=== PATIENT | female | born 1965 | race Caucasian/White ===

== ENCOUNTER 2024-04-12 09:40 | Inpatient (IN) | payer MEDICARE, OTHER ==
[~2024-04-12] VITALS: Ht 165.1 cm; Wt 85.8 kg
[2024-04-12 11:05] LABS: Eosinophils # (auto) 0.2 10 ^3/uL (0-0.8); Eosinophils % (auto) 1.5 % (0.0-7.0); Hemoglobin 11.7 g/dL (12.2-16.2); Mean Corpuscular Volume 101.1 fL (80.0-100.0)
[2024-04-12 11:07] LABS: Basophils # (auto) 0 10 ^3/uL (0-0.2); Lymphocytes # (auto) 1.1 10 ^3/uL (0.4-5.4); Lymphocytes % (auto) 7.4 % (10.0-50.0); Mean Corpuscular Hemoglobin 34.8 pg (28.0-32.0); Mean Corpuscular Hgb Conc. 34.4 g/dL (32.0-36.0); Monocytes # (auto) 0.7 10 ^3/uL (0-1.3); Monocytes % (auto) 4.5 % (0.0-12.0); Neutrophils # (auto) 13.4 10 ^3/uL (1.6-8.6); Neutrophils % (auto) 86.6 % (37.0-80.0); Red Blood Cells 3.37 10^6/uL (4.0-5.20); Red Cell Distribution Width 15.4 % (11.8-14.3); White Blood Cell 15.4 10^3/uL (4.4-10.8)
[2024-04-12 11:11] LABS: Urine Bacteria FEW /hpf (None Seen); Urine Blood Negative /uL (Negative); Urine Clarity Turbid (Clear); Urine Color Yellow (Yellow); Urine Hyaline Cast MOD /lpf (0 - 2); Urine Protein, UAD Negative (Negative); Urine Urobilinogen Normal (Negative); Urine WBC 8 /hpf (0 - 5)
[2024-04-12 11:22] LABS: Alanine Aminotransferase 45 U/L (7-40); Albumin 2.9 g/dL (3.2-4.8); Alkaline Phosphatase 167 U/L (46-116); Anion Gap 8 (5-15); Aspartate Aminotransferase 114 U/L (13-40); BUN/Creatinine Ratio 15.5 (10.0-20.0); Bilirubin, Total 2.9 mg/dL (0.2-1.0); Blood Urea Nitrogen 18 mg/dL (9-23); Calcium 8.6 mg/dL (8.5-10.1); Carbon Dioxide 28 mmol/L (20-30); Chloride 96 mmol/L (98-107); Glucose 110 mg/dL (74-106); Sodium 132 mmol/L (136-145)
[2024-04-12 11:45] VITALS: PULSE 86; RESP 18; O2SAT 97
[2024-04-12 12:16] LABS: Erythrocyte Sedimentation Rate 35 mm/hr (0-20)
[2024-04-12 12:20] LABS: Magnesium 1.4 mg/dL (1.6-2.6)
[2024-04-12 12:29] LABS: CRP High Sensitivity 5.28 mg/dL (<1.0)
[2024-04-12] MEDS: ASPirin 325 MG TAB PO ONE (12:40)
[2024-04-12] MEDS: POTASSIUM CHL 20 Meq TABLET PO ONE (14:33)
[2024-04-12] MEDS: ALBUMIN 25% 100 ML IV ONE (14:34)
[2024-04-12] MEDS: MAGNESIUM SULFATE 1GM/100ML 100 ML IV ONE (14:35)
[2024-04-12] MEDS ORDERED: ONDANSETRON HCL 4 MG/2 ML VIAL IV PRN (14:45)
[2024-04-12] MEDS ORDERED: MORPHINE SULFATE INJ 2 MG/ml SYRG IV PRN (14:45)
[2024-04-12] MEDS ORDERED: NITROGLYCERIN 0.4 MG SL TAB SL PRN (14:45)
[2024-04-12] MEDS ORDERED: DOCUSATE SOD 100 MG CAP PO PRN (14:45)
[2024-04-12 15:18] LABS: Blood Alcohol < 3.0 mg/dL (<10)
[2024-04-12 15:19] LABS: Magnesium 1.4 mg/dL (1.6-2.6)
[2024-04-12 15:20] LABS: Phosphorus 3.7 mg/dL (2.4-5.1)
[2024-04-12 15:55] LABS: Potassium 1.8 mmol/L (3.5-5.1)
[2024-04-12] MEDS ORDERED: POTASSIUM CHL 20MEQ/100ML 100 ML IV ONE (16:15)
[2024-04-12] MEDS: POTASSIUM CHL 20MEQ/100ML 100 ML IV SCH (16:45)
[2024-04-12 16:57] LABS: Amphetamine Screen, Urine Neg (NEGATIVE)
[2024-04-12 16:58] LABS: Barbiturate Scree,Urine Neg (NEGATIVE); Benzodiazephine Screen, Urine Neg (NEGATIVE); Cannabinoid Screen, Urine Neg (NEGATIVE); Cocaine Screen, Urine Neg (NEGATIVE); Opiate Scree,Urine Neg (NEGATIVE); Phencyclidine Screen, Urine Neg (NEGATIVE)
[2024-04-12] MEDS: PANTOPRAZOLE 40 MG/10 ML VIAL INJ IV ONE (17:00)
[2024-04-12] MEDS: PIPERACILLIN-TAZOB 3.375GM 100 ML IV ONE (17:03)
[2024-04-12] MEDS: MORPHINE SULFATE INJ 2 MG/ml SYRG IV PRN (17:14)
[2024-04-12 18:11] VITALS: PULSE 89; RESP 18; O2SAT 94
[2024-04-12] MEDS ORDERED: LAM100T PO (18:30)
[2024-04-12] MEDS ORDERED: QUET200T30 PO (18:30)
[2024-04-12 20:00] VITALS: PULSE 99
[2024-04-12 20:47] LABS: INR 1.48 (0.9-1.15); Prothrombin Time 15.2 sec (9.3-11.8)
[2024-04-12 21:00] VITALS: BP 91/59; PULSE 95; RESP 18; TEMP 98.4; O2SAT 97
[2024-04-12] MEDS: MAGNESIUM SULFATE 1GM/100ML 100 ML IV SCH (21:00)
[2024-04-12] MEDS: POTASSIUM CHLORIDE 40 MEQ, LIDOCAINE 1% (LOCAL ANESTH.) 4 ML in SODIUM CHL 0.9% 250 ML IV ONE (21:53)
[2024-04-12] MEDS ORDERED: PIPERACILLIN-TAZOB 3.375GM 100 ML IV SCH (22:00)
[2024-04-12] MEDS: POTASSIUM EFFERVESENT TAB 25 MEQ PO ONE (22:02)
[2024-04-13] VITALS (9 sets, daily range): BP systolic 96–119; BP diastolic 53–72; PULSE 73–98; RESP 16–20; TEMP 98–99.3; O2SAT 90–96
[2024-04-13] MEDS: SPIRONOLACTONE 25 MG TAB PO ONE (01:19)
[2024-04-13] MEDS: MAGNESIUM SULFATE 1GM/100ML 100 ML IV SCH (01:37)
[2024-04-13] MEDS: PIPERACILLIN-TAZOB 3.375GM 100 ML IV SCH (04:35)
[2024-04-13 05:55] LABS: Basophils # (auto) 0.1 10 ^3/uL (0-0.2); Eosinophils # (auto) 0.5 10 ^3/uL (0-0.8); Monocytes # (auto) 0.9 10 ^3/uL (0-1.3); Red Blood Cells 3.28 10^6/uL (4.0-5.20)
[2024-04-13 05:59] LABS: Basophils % (auto) 0.8 % (0.0-2.0); Eosinophils % (auto) 3.7 % (0.0-7.0); Hematocrit 33.6 % (36.0-46.0); Hemoglobin 11.4 g/dL (12.2-16.2); Lymphocytes # (auto) 1.9 10 ^3/uL (0.4-5.4); Lymphocytes % (auto) 12.6 % (10.0-50.0); Mean Corpuscular Hemoglobin 34.7 pg (28.0-32.0); Mean Corpuscular Hgb Conc. 33.9 g/dL (32.0-36.0); Mean Corpuscular Volume 102.4 fL (80.0-100.0); Neutrophils # (auto) 11.4 10 ^3/uL (1.6-8.6); Neutrophils % (auto) 76.9 % (37.0-80.0); Nucleated Red Blood Cells % 0.2 %; Red Cell Distribution Width 15.3 % (11.8-14.3); White Blood Cell 14.8 10^3/uL (4.4-10.8)
[2024-04-13 06:14] LABS: Alanine Aminotransferase 35 U/L (7-40); Albumin 2.6 g/dL (3.2-4.8); Alkaline Phosphatase 127 U/L (46-116); Anion Gap 6 (5-15); Aspartate Aminotransferase 79 U/L (13-40); Blood Urea Nitrogen 17 mg/dL (9-23); Calcium 8.3 mg/dL (8.5-10.1); Carbon Dioxide 30 mmol/L (20-30); Chloride 100 mmol/L (98-107); Glucose 111 mg/dL (74-106); Magnesium 2.4 mg/dL (1.6-2.6); Potassium 2.7 mmol/L (3.5-5.1); Sodium 136 mmol/L (136-145)
[2024-04-13 06:15] LABS: Bilirubin, Total 2.4 mg/dL (0.2-1.0)
[2024-04-13] MEDS: POTASSIUM CHL 20 Meq TABLET PO ONE ×2 (08:43→18:54)
[2024-04-13] MEDS: SPIRONOLACTONE 25 MG TAB PO SCH (08:45)
[2024-04-13] MEDS: PANTOPRAZOLE 40 MG/10 ML VIAL INJ IV SCH (08:46)
[2024-04-13 08:59] LABS: Hepatitis B Surface Antigen Negative (Negative)
[2024-04-13 09:19] LABS: Hepatitis A Ab IgM Negative
[2024-04-13 09:20] LABS: Hepatitis B Core IgM Negative
[2024-04-13 09:21] LABS: Hepatitis C Antibody Negative (Negative)
[2024-04-13] MEDS ORDERED: ENOXAPARIN SOD 40 MG/0.4 ML SYRINGE SC SCH (10:00)
[2024-04-13] MEDS ORDERED: LAMO200T34 PO (11:07)
[2024-04-13] MEDS: THIAMINE 100mg/ml INJ (200mg/2ml VIAL) IV ONE (15:53)
[2024-04-13] MEDS: FOLIC ACID 1 MG TAB PO ONE (15:53)
[2024-04-13] MEDS: FUROSEMIDE 40 MG/4 ML VIAL IV ONE (15:55)
[2024-04-13 16:46] LABS: Potassium 2.9 mmol/L (3.5-5.1)
[2024-04-13 16:53] LABS: Magnesium 2.3 mg/dL (1.6-2.6)
[2024-04-13] MEDS: NICOTINE 21MG/24 HR TOPICAL PATCH TD ONE (18:54)
[2024-04-13] MEDS: POTASSIUM CHLORIDE 40 MEQ, LIDOCAINE 1% (LOCAL ANESTH.) 4 ML in SODIUM CHL 0.9% 250 ML IV ONE (18:55)
[2024-04-13] MEDS: LACTULOSE 20Gm/30ML SOLN PO SCH (21:23)
[2024-04-13] MEDS: QUEtiapine FUMARATE 100 MG TAB PO SCH (22:47)
[2024-04-14] VITALS (7 sets, daily range): BP systolic 105–120; BP diastolic 60–81; PULSE 59–116; RESP 15–20; TEMP 98.2–99.3; O2SAT 94–98
[2024-04-14] MEDS: POTASSIUM CHLORIDE 40 MEQ, LIDOCAINE 1% (LOCAL ANESTH.) 4 ML in SODIUM CHL 0.9% 250 ML IV ONE (06:00)
[2024-04-14] MEDS: LORazepam 0.5 MG TAB PO PRN (06:00)
[2024-04-14 06:59] LABS: Alanine Aminotransferase 35 U/L (7-40); Albumin 2.7 g/dL (3.2-4.8); Alkaline Phosphatase 138 U/L (46-116); Anion Gap 8 (5-15); Aspartate Aminotransferase 109 U/L (13-40); BUN/Creatinine Ratio 14.9 (10.0-20.0); Blood Urea Nitrogen 11 mg/dL (9-23); Calcium 8.3 mg/dL (8.5-10.1); Carbon Dioxide 27 mmol/L (20-30); Chloride 99 mmol/L (98-107); Glucose 141 mg/dL (74-106); Magnesium 1.8 mg/dL (1.6-2.6); Potassium 3.7 mmol/L (3.5-5.1); Sodium 134 mmol/L (136-145)
[2024-04-14 07:00] LABS: Bilirubin, Total 2.7 mg/dL (0.2-1.0); Total Protein 5.5 g/dL (5.7-8.2)
[2024-04-14 08:38] LABS: Basophils # (auto) 0.2 10 ^3/uL (0-0.2); Eosinophils # (auto) 0.3 10 ^3/uL (0-0.8); Hemoglobin 11.3 g/dL (12.2-16.2); Red Cell Distribution Width 15.2 % (11.8-14.3)
[2024-04-14 08:43] LABS: Basophils % (auto) 1.2 % (0.0-2.0); Eosinophils % (auto) 2.5 % (0.0-7.0); Lymphocytes # (auto) 1.7 10 ^3/uL (0.4-5.4); Lymphocytes % (auto) 12.7 % (10.0-50.0); Mean Corpuscular Hemoglobin 34.4 pg (28.0-32.0); Mean Corpuscular Hgb Conc. 33.4 g/dL (32.0-36.0); Mean Corpuscular Volume 103.1 fL (80.0-100.0); Monocytes # (auto) 0.6 10 ^3/uL (0-1.3); Monocytes % (auto) 4.8 % (0.0-12.0); Neutrophils # (auto) 10.4 10 ^3/uL (1.6-8.6); Neutrophils % (auto) 78.8 % (37.0-80.0); White Blood Cell 13.2 10^3/uL (4.4-10.8)
[2024-04-14] MEDS: FUROSEMIDE 40 MG/4 ML VIAL IV SCH (09:22)
[2024-04-14] MEDS: cefTRIAXone 1GM/50ML D5W 50 ML IV SCH (09:22)
[2024-04-14] MEDS: LACTULOSE 20Gm/30ML SOLN PO SCH (09:22)
[2024-04-14] MEDS: FOLIC ACID 1 MG TAB PO SCH (09:22)
[2024-04-14] MEDS: THIAMINE 100mg/ml INJ (200mg/2ml VIAL) IV SCH (09:22)
[2024-04-14] MEDS: CYANOCOBALAMIN 500 MCG TAB PO ONE (09:26)
[2024-04-14] MEDS ORDERED: lamoTRIgine 100 MG TAB PO SCH (10:00)
[2024-04-14] MEDS: NICOTINE 21MG/24 HR TOPICAL PATCH TD SCH (17:39)
[2024-04-14] MEDS: lamoTRIgine 100 MG TAB PO SCH (21:33)
[2024-04-15] VITALS (8 sets, daily range): BP systolic 104–114; BP diastolic 55–69; PULSE 62–115; RESP 15–22; TEMP 98–99.2; O2SAT 94–97
[2024-04-15] MEDS: CYANOCOBALAMIN 500 MCG TAB PO SCH (09:50)
[2024-04-15 10:33] LABS: Basophils # (auto) 0.1 10 ^3/uL (0-0.2); Eosinophils # (auto) 0.6 10 ^3/uL (0-0.8); Neutrophils # (auto) 9.1 10 ^3/uL (1.6-8.6)
[2024-04-15 10:35] LABS: Basophils % (auto) 0.9 % (0.0-2.0); Eosinophils % (auto) 5.2 % (0.0-7.0); Hematocrit 35.3 % (36.0-46.0); Lymphocytes % (auto) 15.8 % (10.0-50.0); Mean Corpuscular Hemoglobin 35.6 pg (28.0-32.0); Mean Corpuscular Hgb Conc. 34.1 g/dL (32.0-36.0); Mean Corpuscular Volume 104.3 fL (80.0-100.0); Monocytes # (auto) 0.7 10 ^3/uL (0-1.3); Neutrophils % (auto) 72.1 % (37.0-80.0); Nucleated Red Blood Cells % 0.2 %; Red Blood Cells 3.38 10^6/uL (4.0-5.20); Red Cell Distribution Width 15.3 % (11.8-14.3); White Blood Cell 12.5 10^3/uL (4.4-10.8)
[2024-04-15 10:50] LABS: INR 1.35 (0.9-1.15)
[2024-04-15 10:51] LABS: Alkaline Phosphatase 127 U/L (46-116)
[2024-04-15 10:52] LABS: Alanine Aminotransferase 38 U/L (7-40); Anion Gap 7 (5-15); Aspartate Aminotransferase 123 U/L (13-40); BUN/Creatinine Ratio 13.6 (10.0-20.0); Bilirubin, Total 2.7 mg/dL (0.2-1.0); Blood Urea Nitrogen 9 mg/dL (9-23); Calcium 8.6 mg/dL (8.7-10.4); Carbon Dioxide 28 mmol/L (20-30); Chloride 101 mmol/L (98-107); Glucose 133 mg/dL (74-106); Potassium 3.2 mmol/L (3.5-5.1); Sodium 136 mmol/L (136-145)
[2024-04-15 11:18] LABS: Erythrocyte Sedimentation Rate 28 mm/hr (0-20)
[2024-04-16] VITALS (8 sets, daily range): BP systolic 104–137; BP diastolic 61–83; PULSE 78–108; RESP 16–21; TEMP 98.6–99.2; O2SAT 92–96
[2024-04-16] MEDS: guaiFENesin-DM 100/10mg/5ml SYR PO PRN (03:54)
[2024-04-16] MEDS: traMADol HCL 50 MG TAB PO PRN (06:38)
[2024-04-16] MEDS: POTASSIUM CHL 20 Meq TABLET PO ONE ×2 (09:30→23:27)
[2024-04-16 11:05] LABS: Anion Gap 5 (5-15); Carbon Dioxide 28 mmol/L (20-30); Chloride 100 mmol/L (98-107); Potassium 3.3 mmol/L (3.5-5.1); Sodium 133 mmol/L (136-145)
[2024-04-16 11:07] LABS: Calcium 8.9 mg/dL (8.7-10.4)
[2024-04-16 11:11] LABS: BUN/Creatinine Ratio 14.1 (10.0-20.0); Blood Urea Nitrogen 9 mg/dL (9-23); Glucose 132 mg/dL (74-106)
[2024-04-17] VITALS (8 sets, daily range): BP systolic 98–137; BP diastolic 53–92; PULSE 106–137; RESP 14–84; TEMP 98.3–99.3; O2SAT 93–98
[2024-04-17 06:05] LABS: Anion Gap 4 (5-15); Calcium 8.8 mg/dL (8.7-10.4); Carbon Dioxide 28 mmol/L (20-30); Chloride 104 mmol/L (98-107); Potassium 4.1 mmol/L (3.5-5.1); Sodium 136 mmol/L (136-145)
[2024-04-17 06:11] LABS: BUN/Creatinine Ratio 15.6 (10.0-20.0); Blood Urea Nitrogen 10 mg/dL (9-23); Glucose 96 mg/dL (74-106)
[2024-04-18 01:00] VITALS: BP 95/55; PULSE 95; RESP 55; TEMP 99.1; O2SAT 98
[2024-04-18 05:00] VITALS: BP 89/44; PULSE 117; RESP 16; TEMP 98.8; O2SAT 95
[2024-04-18] MEDS: PANTOPRAZOLE 40 MG TAB PO SCH (05:46)
[2024-04-18 08:15] VITALS: O2SAT 95
[2024-04-18 09:00] VITALS: BP 107/61; PULSE 112; RESP 20; TEMP 97.9; O2SAT 95
[2024-04-18] MEDS: THIAMINE HCL 100 MG TAB PO SCH (10:00)
[2024-04-18] MEDS ORDERED: levoFLOXacin 250 MG TAB PO SCH (10:00)
[2024-04-18 10:31] LABS: Basophils # (auto) 0.1 10 ^3/uL (0-0.2); Lymphocytes # (auto) 0.9 10 ^3/uL (0.4-5.4); White Blood Cell 6.9 10^3/uL (4.4-10.8)
[2024-04-18 10:34] LABS: Basophils % (auto) 1.2 % (0.0-2.0); Eosinophils # (auto) 0.5 10 ^3/uL (0-0.8); Eosinophils % (auto) 6.8 % (0.0-7.0); Hematocrit 32.1 % (36.0-46.0); Lymphocytes % (auto) 13.2 % (10.0-50.0); Mean Corpuscular Hemoglobin 35.3 pg (28.0-32.0); Mean Corpuscular Hgb Conc. 34.5 g/dL (32.0-36.0); Mean Corpuscular Volume 102.5 fL (80.0-100.0); Monocytes # (auto) 0.7 10 ^3/uL (0-1.3); Monocytes % (auto) 10.3 % (0.0-12.0); Neutrophils # (auto) 4.7 10 ^3/uL (1.6-8.6); Neutrophils % (auto) 68.5 % (37.0-80.0); Red Blood Cells 3.13 10^6/uL (4.0-5.20); Red Cell Distribution Width 14.7 % (11.8-14.3)
[2024-04-18 10:40] LABS: Chloride 105 mmol/L (98-107); Potassium 3.6 mmol/L (3.5-5.1); Sodium 135 mmol/L (136-145)
[2024-04-18 10:41] LABS: Anion Gap 4 (5-15); Calcium 8.9 mg/dL (8.7-10.4); Carbon Dioxide 26 mmol/L (20-30)
[2024-04-18 10:46] LABS: Blood Urea Nitrogen 9 mg/dL (9-23); Glucose 132 mg/dL (74-106)
[2024-04-18 13:00] VITALS: BP_SYST 54; PULSE 111; RESP 18; TEMP 97.8; O2SAT 91
[2024-04-18] MEDS ORDERED: PANT40TA2 PO (14:50)
[2024-04-18] MEDS ORDERED: MULTTAB99 PO (14:50)
[2024-04-18] MEDS ORDERED: LACT10SO3 PO (14:50)
[2024-04-18] MEDS ORDERED: SPIR50TA2 PO (14:50)
[2024-04-18] MEDS ORDERED: FURO1TAB31 PO (14:50)
== END 2024-04-18 17:20 | disposition home or self-care (01) | DRG 432 ==
LOC: ER 09:40 → TELE 14:52 → TELE-WESTW 17:49
PROVIDERS: ADMIT Internal Medicine; ATTEND Internal Medicine
DX: K70.31 Alcoholic cirrhosis of liver with ascites (principal); I21.A1 Myocardial infarction type 2; N17.0 Acute kidney failure with tubular necrosis; E87.1 Hypo-osmolality and hyponatremia; E44.1 Mild protein-calorie malnutrition; K80.51 Calculus of bile duct without cholangitis or cholecystitis with obstruction; K76.82 Hepatic encephalopathy; D72.829 Elevated white blood cell count, unspecified; E87.6 Hypokalemia; E83.42 Hypomagnesemia; R74.01 Elevation of levels of liver transaminase levels; F10.20 Alcohol dependence, uncomplicated; G25.81 Restless legs syndrome; D53.1 Other megaloblastic anemias, not elsewhere classified; F41.9 Anxiety disorder, unspecified; K21.9 Gastro-esophageal reflux disease without esophagitis; I10 Essential (primary) hypertension; F17.210 Nicotine dependence, cigarettes, uncomplicated; F31.9 Bipolar disorder, unspecified; Y90.9 Presence of alcohol in blood, level not specified; Z88.8 Allergy status to other drugs, medicaments and biological substances; Z68.31 Body mass index [BMI] 31.0-31.9, adult
CPT/HCPCS: 36415; 71045; 74176; 76705; 80048; 80053; 80074; 80307; 80320; 81001; 82140; 83605; 83735; 83880; 84100; 84132; 84484; 85025; 85610; 85652; 86141; 87040; 93005; 93306; 93970; 96365; 96367; 96375; 97110; 97116; 97163; 97530; G0378; J2001; J2470; J2543; J3480; P9047